=== PATIENT | female | born 1985 | race Caucasian/White ===

== ENCOUNTER 2018-11-15 07:19 | Emergency (ER) | payer OTHER ==
[2018-11-15 07:32] VITALS: BP 162/92; PULSE 103; TEMP 98.5; BMI 46.5
--- NOTE | 2018-11-15 08:49 | PDOC ---
History of Present Illness - General Chief Complaint: Injury Stated Complaint: RIGHT GREAT TOE PAIN Time Seen by Provider: 11/15/18 07:55 History Source: Patient Exam Limitations: No Limitations - History of Present Illness Initial Comments: 11/15/18 08:45 33-year-old female with history of diabetes currently on no medication presents to ED with swelling to the right great toe since yesterday. Patient states with walking which she struck it against the bed frame causing her discomfort and now with redness and swelling this morning. Patient denies previous injury to the affected area and radiation of pain. Timing/Duration: 24 hours Severity: mild Associated Symptoms: reports: denies symptoms Past History - Travel Traveled outside of the country in the last 30 days: No - Past Medical History Allergies/Adverse Reactions: Allergies Allergy/AdvReac Type Severity Reaction Status Date / Time No Known Allergies Allergy Verified 11/15/18 07:32 Home Medications: Ambulatory Orders Metformin HCl [Metformin HCl ER] 1,000 mg PO BID 09/03/15 Lisinopril [Prinivil] 2.5 mg PO DAILY #30 tablet 09/04/15 Clindamycin [Cleocin -] 300 mg PO TID #21 capsule 11/15/18 Anemia: No Asthma: No Cancer: No Cardiac Disorders: No CVA: No COPD: No CHF: No Dementia: No Diabetes: Yes (NIIDM not on meds) GI Disorders: No Disorders: No HTN: Yes Hypercholesterolemia: Yes Liver Disease: No Seizures: No Thyroid Disease: No - Surgical History Abdominal Surgery: No Appendectomy: No Cardiac Surgery: No Cholecystectomy: No Lung Surgery: No Neurologic Surgery: No Orthopedic Surgery: No - Suicide/Smoking/Psychosocial Hx Smoking History: Never smoked Information on smoking cessation initiated: No Hx Alcohol Use: No Drug/Substance Use Hx: No Substance Use Type: None Hx Substance Use Treatment: No Patient Lives Alone: No Lives with/in: parents Review of Systems - Review of Systems Able to Perform ROS?: Yes Constitutional: No: Symptoms Reported HEENTM: No: Symptoms Reported Respiratory: No: Symptoms reported ABD/GI: No: Symptoms Reported Musculoskeletal: Yes: Joint Pain (rt 1st toe), Joint Swelling Integumentary: Yes: Bruising, Erythema Endocrine: No: Increased Thirst, Increased Urine, Change in Weight *Physical Exam - Vital Signs Last Vital Signs Temp Pulse Resp BP Pulse Ox 98.5 F 103 H 19 162/92 97 11/15/18 07:28 11/15/18 07:28 11/15/18 07:28 11/15/18 07:28 11/15/18 07:28 - Physical Exam General Appearance: Yes: Appropriately Dressed. No: Apparent Distress HEENT: positive: Pharynx Normal (dry) Neck: positive: Normal Thyroid Respiratory/Chest: positive: Lungs Clear, Normal Breath Sounds. negative: Respiratory Distress, Accessory Muscle Use Cardiovascular: positive: Regular Rhythm, Regular Rate (94). negative: Murmur Extremity: positive: Normal Capillary Refill, Normal Range of Motion, Tender ( generally over right first toe) Integumentary: positive: Swelling, Ecchymosis (right first toe) Neurologic: positive: Motor Strength 5/5 (ambulatory) Moderate Sedation - Procedure Monitoring Vital Signs: Procedure Monitoring Vital Signs Temperature 98.5 F 11/15/18 07:28 Pulse Rate 103 H 11/15/18 07:28 Respiratory Rate 19 11/15/18 07:28 Blood Pressure 162/92 11/15/18 07:28 O2 Sat by Pulse Oximetry (%) 97 11/15/18 07:28 ED Treatment Course - RADIOLOGY Radiology Studies Ordered: Category Date Time Status TOE(S) RIGHT [RAD] Stat Radiology 11/15/18 07:55 Taken Medical Decision Making - Medical Decision Making 11/15/18 08:29 Chief complaint: Right great toe injury Exam: Edematous erythematous and ecchymotic right first toe. Full range of motion. no deformity Plan: Toe x-ray 11/15/18 08:49 X-ray negative. Due to patient's history of diabetes and appearance of right first toe. Patient will be prescribed clindamycin. Patient has an appointment with rn homecare, Dr. Washington at 12:30 this Tuesday *DC/Admit/Observation/Transfer Diagnosis at time of Disposition: Contusion of toe of right foot - Discharge Dispostion Disposition: HOME Condition at time of disposition: Good - Prescriptions Prescriptions: Clindamycin [Cleocin -] 300 mg PO TID #21 capsule - Referrals - Patient Instructions Printed Discharge Instructions: DI for Toe Sprain Additional Instructions: Please take medications prescribed to prevent infection from your diabetes. May take Tylenol for discomfort. Observe for worsening redness swelling or discomfort. If noted please return to the ED. Otherwise follow-up with her rn homecare as scheduled - Post Discharge Activity
== END 2018-11-15 09:02 | disposition home or self-care (01) ==
LOC: JER 07:19
DX: S90.111A Contusion of right great toe without damage to nail, initial encounter (principal); W22.03XA Walked into furniture, initial encounter; Y93.89 Activity, other specified; Y92.038 Other place in apartment as the place of occurrence of the external cause; Y99.8 Other external cause status
CPT/HCPCS: 73660-TC-FY; 99281-25

== ENCOUNTER 2018-11-20 13:01 | Inpatient (IN) | payer OTHER ==
--- NOTE | 2018-11-20 13:26 | PDOC ---
History of Present Illness - General Chief Complaint: Wound Stated Complaint: SEND BY MD Time Seen by Provider: 11/20/18 13:26 - History of Present Illness Initial Comments: 33 year old female with PMH of newly diagnosed DM (non-medicated currently) presents to ED with swelling and lesions of the right first toe for the past seven days. Patient states with walking seven days prior she struck it against the bed frame causing her discomfort which evolved into redness and eventually skin breakdown and spreading erythema around the wound. Patient presenting to the ED 5 days prior and was given Clindamycin with good resolution of her symptoms and states that her pain an redness have improved. However, when she saw her vascular surgeon (Dr. Anderson) today, he removed a skin callous over one of the primary wounds and she states that he noted some purulent material. Per my conversation on the phone with him, he feels that the patient needs IV antibiotics. Of note this was the first time she saw Justin and the first time she saw anyone for her diabetes as well. 11/20/18 13:299+ Past History - Past Medical History Allergies/Adverse Reactions: Allergies Allergy/AdvReac Type Severity Reaction Status Date / Time No Known Allergies Allergy Verified 11/20/18 13:11 Home Medications: Ambulatory Orders NK [No Known Home Medication] 11/20/18 Anemia: No Asthma: No Cancer: No Cardiac Disorders: No CVA: No COPD: No CHF: No Dementia: No Diabetes: Yes (NIIDM not on meds) GI Disorders: No Disorders: No HTN: Yes Hypercholesterolemia: Yes Liver Disease: No Seizures: No Thyroid Disease: No - Surgical History Abdominal Surgery: No Appendectomy: No Cardiac Surgery: No Cholecystectomy: No Lung Surgery: No Neurologic Surgery: No Orthopedic Surgery: No - Suicide/Smoking/Psychosocial Hx Smoking History: Never smoked Have you smoked in the past 12 months: No Information on smoking cessation initiated: No Hx Alcohol Use: No Drug/Substance Use Hx: No Substance Use Type: None Hx Substance Use Treatment: No Review of Systems - Review of Systems Constitutional: No: Chills, Diaphoresis, Fever, Loss of Appetite HEENTM: No: Eye Pain, Blurred Vision, Tearing Respiratory: No: Cough, Orthopnea, Shortness of Breath Cardiac (ROS): No: Chest Pain, Edema, Irregular Heart Rate ABD/GI: No: Constipated, Diarrhea, Nausea : No: Dysuria, Discharge, Frequency Musculoskeletal: No: Back Pain, Gout, Joint Pain Integumentary: No: Bruising, Lesions, Lumps Neurological: No: Headache, Numbness, Paresthesia Psychiatric: No: Anxiety, Depression Endocrine: No: Excessive Sweating, Flushing, Intolerance to Cold Hematologic/Lymphatic: No: Anemia, Blood Clots *Physical Exam - Vital Signs Last Vital Signs Temp Pulse Resp BP Pulse Ox 99.0 F 95 H 16 173/94 H 100 11/20/18 13:09 11/20/18 13:09 11/20/18 13:09 11/20/18 13:09 11/20/18 13:09 - Physical Exam General Appearance: Yes: Nourished, Appropriately Dressed. No: Apparent Distress HEENT: positive: EOMI, NEETU, Normal ENT Inspection, Normal Voice Neck: positive: Trachea midline, Normal Thyroid, Supple. negative: Tender, Rigid Respiratory/Chest: positive: Lungs Clear, Normal Breath Sounds. negative: Chest Tender, Respiratory Distress, Accessory Muscle Use Cardiovascular: positive: Regular Rhythm, Regular Rate Gastrointestinal/Abdominal: positive: Normal Bowel Sounds, Flat, Soft. negative : Tender Lymphatic: negative: Adenopathy, Tenderness Musculoskeletal: negative: Normal Inspection (Right first toe with 2-3 cm irregular, semi-linear wound across the plantar aspect and two smaller circular wounds on the medial aspoect of distal first toe approximately 5mm and 1 cm in diameter. ALl wounds appear clean and without purulence. Also erythem of the skin extending from the wound proximally to hte mid dorsal foot. No streaking or fluctuance. ), Decreased Range of Motion Extremity: positive: Normal Capillary Refill, Normal Range of Motion, Tender ( per exam in MSK section). negative: Normal Inspection Integumentary: positive: Normal Color, Dry, Warm, Erythema, Swelling Neurologic: positive: southeast regional sales manager II-XII NML intact, Fully Oriented, Alert, Normal Mood/ Affect, Normal Response, Motor Strength 5/5 Moderate Sedation - Procedure Monitoring Vital Signs: Procedure Monitoring Vital Signs Temperature 99.0 F 11/20/18 13:09 Pulse Rate 95 H 11/20/18 13:09 Respiratory Rate 16 11/20/18 13:09 Blood Pressure 173/94 H 11/20/18 13:09 O2 Sat by Pulse Oximetry (%) 100 11/20/18 13:09 ED Treatment Course - LABORATORY CBC & Chemistry Diagram: 11/20/18 13:34 11/20/18 13:34 Medical Decision Making - Medical Decision Making 33 year old obese female with new onset diabetes and foot wound. Patient with stable VS and admitted improvement of her foot wound but there is concern for refractory infection given purulence noted on Dr. Greer's exam. Will admit patient for short course of IV antibiotics. Spoke to Dr. Strong ( endocrinology) as well and he was unsure what to start her on and will defer to hospitalist team for short term control then likely use oral meds for intermediate control. 11/20/18 14:16 *DC/Admit/Observation/Transfer Diagnosis at time of Disposition: Wound of foot, Newly diagnosed diabetes - Discharge Dispostion Condition at time of disposition: Stable Decision to Admit order: Yes - Referrals - Patient Instructions - Post Discharge Activity
[2018-11-20] MEDS ORDERED: PIPERACILLIN/TAZOB 4.5 GM 4.5 GM in DEXTROSE 5%-WATER 100 ML IVPB ONE (13:55)
[2018-11-20] MEDS ORDERED: VANCOMYCIN HCL 1,500 MG in DEXTROSE 5%-WATER - 500 ML IVPB ONE (13:55)
[2018-11-20] MEDS ORDERED: VANCOMYCIN 1 GRAM (PRE-DOCKED) 1,000 MG/250 ML BAG IVPB ONE (14:07)
[2018-11-20] MEDS ORDERED: PIPERACILLIN/TAZOB 4.5 GM 4.5 GM/100 ML BAG IVPB ONE (14:07)
[2018-11-20 14:15] LABS: HEMATOCRIT 36.7 % (32.4-45.2); HEMOGLOBIN 12.7 GM/dL (10.7-15.3); MCH 28.6 pg (25.7-33.7); MCHC 34.6 g/dl (32.0-36.0); MEAN CELL VOLUME 82.9 fl (80-96); MEAN PLT VOLUME 7.8 fl (7.5-11.1); PLATELET COUNT 427 K/MM3 (134-434); RBC 4.43 M/mm3 (3.60-5.2); RDW 14.4 % (11.6-15.6); WHITE BLOOD COUNT 10.2 K/mm3 (4.0-10.0)
--- NOTE | 2018-11-20 14:26 | PDOC ---
Attending Attestation - HPI HPI: 11/20/18 14:27 33 y/o F with a h/o NIDDM (poorly controlled), recent right toe cellulitis who presents to the emergency department for evaluation of a 7 day hx of first right toe swelling and lesions. Patient was sent by Dr. Dyer for possible IV antibiotics. Patient was sent to the ED 5 days prior and was given Clindaymicn without significant improvement to her symptoms. She notes Dr. Dyer sent her for evaluation after he removed a skin callous from the wound which produced purulent material and sent the pt to the ER for IV abx. pt notes she banged her foot on tuesday morning prior to arrival. no prior history of abcesses or nonhealing wounds. denies any fever/chills, n/v. <Rere Espino - Last Filed: 11/20/18 14:27> - Resident Resident Name: VestaStephaniecheli - ED Attending Attestation I have performed the following: I have examined & evaluated the patient, The case was reviewed & discussed with the resident, I agree w/resident's findings & plan, Exceptions are as noted - Physicial Exam PE: 11/20/18 14:39 general: no acute distress ext: wound on R 1st digit w erythema - Medical Decision Making 11/20/18 14:31 33y F hx of NIDDM poorly contorled sent for evaluation of R toe wound by vascular for IV abx, recent trauma, was on outpatient clindamycin. no systemic complaints suggestive of sepsis anticiapte admission and faustino bx A portion of this note was documented by scribe services under my direction. I have reviewed the details of the note, within reason, and agree with the documentation with the following case summary and management plan written by me <Alli Asher - Last Filed: 11/20/18 14:40> Attestations - Attestations Documentation prepared by Rere Espino, acting as medical artist for Alli Asher MD. <Rere Espino - Last Filed: 11/20/18 14:27>
[2018-11-20 14:37] LABS: INR 1.04 (0.83-1.09); PROTHROMBIN TIME (PATIENT) 12.3 SEC (9.7-13.0)
[2018-11-20 14:58] LABS: ALBUMIN 2.6 g/dl (3.4-5.0); ALK PHOS 92 U/L (45-117); ANION GAP 9 MMOL/L (8-16); BILIRUBIN,TOTAL 0.2 mg/dL (0.2-1); BLOOD UREA NITROGEN 10 mg/dL (7-18); CHLORIDE 99 mmol/L (98-107); CO2 27 mmol/L (21-32); CREATININE 0.7 mg/dL (0.55-1.3); POTASSIUM 4.4 mmol/L (3.5-5.1); SGOT/AST 20 U/L (15-37); SGPT/ALT 20 U/L (13-61); SODIUM 134 mmol/L (136-145); TOT PROT 7.6 g/dl (6.4-8.2)
[2018-11-20 15:05] LABS: GLUCOSE,RANDOM 310 mg/dL (74-106)
--- NOTE | 2018-11-20 15:38 | CON.ID ---
Consult Consult Specialty:: infectious diseases Referred by:: Reason for Consultation:: toe in fection rt leg - History of Present Illness Chief Complaint: swelling and non healing of the rt toe History of Present Illness: 33 year old female with PMH of newly diagnosed DM ) presents to ED with swelling and lesions of the right first toe for the past seven days. Patient states with walking seven days prior she struck it against the bed frame causing her discomfort which evolved into redness and eventually skin breakdown and spreading erythema around the wound. Patient presenting to the ED 5 days prior and was given Clindamycin with good resolution of her symptoms and states that her pain an redness have improved. However, when she saw her vascular surgeon (Dr. Anderson) today, he removed a skin callous over one of the primary wounds and she states that he noted some purulent material. patient was send to be given iv abx - History Source History Provided By: Patient Limitations to Obtaining History: No Limitations - Past Medical History Cardio/Vascular: Yes: HTN, Hyperlipdemia - Alcohol/Substance Use Hx Alcohol Use: No - Smoking History Smoking history: Never smoked Have you smoked in the past 12 months: No - Social History Usual Living Arrangement: With Significant Other Home Medications - Allergies Allergies/Adverse Reactions: Allergies Allergy/AdvReac Type Severity Reaction Status Date / Time No Known Allergies Allergy Verified 11/20/18 13:11 - Home Medications Home Medications: Ambulatory Orders NK [No Known Home Medication] 11/20/18 Family Disease History - Family Disease History Family Disease History: Heart Disease: Father ( of [place] in his 50s) Review of Systems - Review of Systems Constitutional: reports: No Symptoms Eyes: reports: No Symptoms HENT: reports: No Symptoms Neck: reports: No Symptoms Cardiovascular: reports: No Symptoms Respiratory: reports: No Symptoms Gastrointestinal: reports: No Symptoms Musculoskeletal: reports: No Symptoms Integumentary: reports: Erythema, Wound, Other (swelling of the rt foot with cellulitis) Neurological: reports: No Symptoms Endocrine: reports: No Symptoms Hematology/Lymphatic: reports: No Symptoms Psychiatric: reports: No Symptoms Physical Exam Vital Signs: Vital Signs Temperature 99.0 F 11/20/18 13:09 Pulse Rate 95 H 11/20/18 13:09 Respiratory Rate 16 11/20/18 13:09 Blood Pressure 173/94 H 01/14/19 13:09 O2 Sat by Pulse Oximetry (%) 100 11/20/18 13:09 Constitutional: Yes: Well Nourished, Calm, Mild Distress, Obese Eyes: Yes: Conjunctiva Clear Cardiovascular: Yes: Regular Rate and Rhythm Respiratory: Yes: Regular, CTA Bilaterally Gastrointestinal: Yes: Normal Bowel Sounds, Soft Musculoskeletal: Yes: WNL Extremities: Yes: Erythema (rt), Other (swelling and tenderness) Neurological: Yes: Alert, Oriented Labs: CBC, BMP 11/20/18 13:34 11/20/18 13:34 Imaging - Results X-ray: Report Reviewed, Image Reviewed Assessment/Plan Problem List - Problems (1) Callus of foot Code(s): L84 - CORNS AND CALLOSITIES (2) Contusion of toe of right foot Code(s): S90.121A - CONTUSION OF RIGHT LESSER TOE(S) W/O DAMAGE TO NAIL, INIT (3) Diabetes Assessment/Plan: on insulin and bgms Code(s): E11.9 - TYPE 2 DIABETES MELLITUS WITHOUT COMPLICATIONS (4) HTN (hypertension) Assessment/Plan: monitor Code(s): I10 - ESSENTIAL (PRIMARY) HYPERTENSION (5) Hyperlipemia Code(s): E78.5 - HYPERLIPIDEMIA, UNSPECIFIED (6) Morbid obesity Code(s): E66.01 - MORBID (SEVERE) OBESITY DUE TO EXCESS CALORIES (7) Wound of foot Assessment/Plan: iv abx prnpain meds dressing instructions per wound care Code(s): S91.309A - UNSPECIFIED OPEN WOUND, UNSPECIFIED FOOT, INITIAL ENCOUNTER cellulitis of the rt foot plan will start patient on iv abx will follow the wound in day or so if the leg still remains swollen will get mri rest as per the team and vascular
--- NOTE | 2018-11-20 15:59 | CONSULT ---
<Papo Gar - Last Filed: 11/20/18 16:16> - Consultation REQUESTING PROVIDER: CONSULT REQUEST: We have been asked to surgically evaluate this patient for ( Right great toe ulcer). PCP:Elle Allen HISTORY OF PRESENT ILLNESS: 33 y/o F w/ PMhx NIDDM (poorly controlled), htn, morbid obesity, now sent to Ed by Vascular Surgeon, Dr Dyer for admission for Iv abx due to R great toe infection/cellulitis. Pt states Tuesday morning she stubbed her right great toe while walking around her house. Reports she did not remove her sock at the time as she frequently stubs her toes due to her "clumsiness and clutter in the house ". The next morning pt reports having significant pain when she woke. Upon examining her foot she noted it to be significantly swollen with some redness. She presented to [facility] ED where she had an xray done (normal) and was given an RX for Clindamycin 300mg TID x 1 week. Pt reports taking antibiotics as prescribed without significant improvement in symptoms. States she had a follow up appointment with her Automotive Software Engineer (Dr Bowen) on Tuesday at 1230pm. Dr Strong referred pt to Dr Deyr. Reports debridement of a callus in the office by Dr Dyer with +pus expressed. Denies fever/chills, n/v/d at home, denies prior h/o tobacco abuse, history of abcesses or nonhealing wounds denies any fever/chills, n/v. PMHx: as above PSHx: denies Home Medications Medication Instructions Recorded metFORMIN HCL [Metformin ER 1,000 mg PO BID 09/03/15 Osmotic] Lisinopril [Prinivil] 2.5 mg PO DAILY #30 tablet 09/04/15 Clindamycin [Cleocin -] 300 mg PO TID #21 capsule 11/15/18 Allergies Allergy/AdvReac Type Severity Reaction Status Date / Time No Known Allergies Allergy Verified 11/20/18 13:11 REVIEW OF SYSTEMS: CONSTITUTIONAL: Absent: fever, chills, diaphoresis CARDIOVASCULAR: Absent: chest pain RESPIRATORY: Absent: cough, shortness of breath GASTROINTESTINAL: Absent: abdominal pain PHYSICAL EXAM: GENERAL: Awake, alert, and fully oriented, in no acute distress. Pleasant female in NAD, does not appear septic. HEAD: Normal with no signs of trauma. LUNGS: Unlabored on RA. LOWER EXTREMITIES: L foot with no open ulcers or wounds. Callus over medial aspect of great toe. R foot with 1+ pitting edema to ankle, +erythema and increased warmth of forefoot. R toe with open ulcer approx 4x2cm on medial aspect of great toe (s/p debridement of callus), scant seropurulent drainage expressed. +TTP of great toe, +ecchymosis of great toe. Small ?denuded blister over 1st metatarsal head, clean based with no drainage. No ttp on plantar surface. No crepitus. Vasc: 2+ dp/pt b/l Vital Signs Temperature 99.0 F 11/20/18 13:09 Pulse Rate 95 H 11/20/18 13:09 Respiratory Rate 16 11/20/18 13:09 Blood Pressure 173/94 H 11/20/18 13:09 O2 Sat by Pulse Oximetry (%) 100 11/20/18 13:09 Lab Results WBC 10.2 K/mm3 (4.0-10.0) H 11/20/18 13:34 RBC 4.43 M/mm3 (3.60-5.2) 11/20/18 13:34 Hgb 12.7 GM/dL (10.7-15.3) 11/20/18 13:34 Hct 36.7 % (32.4-45.2) 11/20/18 13:34 MCV 82.9 fl (80-96) 11/20/18 13:34 MCHC 34.6 g/dl (32.0-36.0) 11/20/18 13:34 RDW 14.4 % (11.6-15.6) 11/20/18 13:34 Plt Count 427 K/MM3 (134-434) D 11/20/18 13:34 Sodium 134 mmol/L (136-145) L 11/20/18 13:34 Potassium 4.4 mmol/L (3.5-5.1) 11/20/18 13:34 Chloride 99 mmol/L (98-107) 11/20/18 13:34 Carbon Dioxide 27 mmol/L (21-32) 11/20/18 13:34 Anion Gap 9 MMOL/L (8-16) 11/20/18 13:34 BUN 10 mg/dL (7-18) 11/20/18 13:34 Creatinine 0.7 mg/dL (0.55-1.3) 11/20/18 13:34 Random Glucose 310 mg/dL (74-106) H* 11/20/18 13:34 Calcium 9.0 mg/dL (8.5-10.1) 11/20/18 13:34 Blood Type A POSITIVE 11/20/18 13:34 Antibody Screen Negative 11/20/18 13:34 INR 1.04 (0.83-1.09) 11/20/18 13:34 A/P: 33 y/o F w/ PMhx NIDDM (poorly controlled), htn, morbid obesity, now sent to Ed by Vascular Surgeon, Dr Dyer for admission for Iv abx due to R great toe infection/cellulitis. In ED pt with low grade temp to 99F, tachy to low 100s, hypertensive. Mild leukocytosis. R great toe with cellulitis. -Admit to medical service for IV abx (Vanco/Zosyn) -Bactroban to ulcer, wrap with 4x4 and kerlix -Elevate le while at rest -Glucose control -Remainder of care per medical team -Will follow pt while in house above d/w attending Dr Dyer <Guru Dyer - Last Filed: 11/21/18 13:26> - Consultation REQUESTING PROVIDER: CONSULT REQUEST: We have been asked to surgically evaluate this patient for ( specify). PCP:Elle Allen HISTORY OF PRESENT ILLNESS: PMHx: PSHx: Home Medications Medication Instructions Recorded NK [No Known Home Medication] 11/20/18 Allergies Allergy/AdvReac Type Severity Reaction Status Date / Time No Known Allergies Allergy Verified 11/20/18 13:11 REVIEW OF SYSTEMS: CONSTITUTIONAL: Absent: fever, chills, diaphoresis, generalized weakness, malaise, loss of appetite, weight change CARDIOVASCULAR: Absent: chest pain, syncope, palpitations, irregular heart rate, lightheadedness , peripheral edema RESPIRATORY: Absent: cough, shortness of breath, dyspnea with exertion, wheezing, stridor, hemoptysis GASTROINTESTINAL: Absent: abdominal pain, abdominal distension, nausea, vomiting, diarrhea, constipation, melena, hematochezia GENITOURINARY: Absent: dysuria, frequency, urgency, hesitancy, hematuria, flank pain, genital pain MUSCULOSKELETAL: Absent: myalgia, arthralgia, joint swelling, back pain, neck pain SKIN: Absent: rash, itching, pallor HEMATOLOGIC/IMMUNOLOGIC: Absent: easy bleeding, easy bruising, lymphadenopathy NEUROLOGIC: Absent: headache, focal weakness, paresthesias, dizziness, unsteady gait, seizure, mental status changes, bladder or bowel incontinence PSYCHIATRIC: Absent: anxiety, depression, suicidal or homicidal ideation, hallucinations. PHYSICAL EXAM: GENERAL: Awake, alert, and fully oriented, in no acute distress. HEAD: Normal with no signs of trauma. EYES: PERRL, sclera anicteric, conjunctiva clear. NECK: Normal ROM, supple without lymphadenopathy, JVD, or masses. LUNGS: Clear to auscultation bilat anteriorly. No wheezes, and no crackles. No accessory muscle use. HEART: Regular rate and rhythm. No murmurs ABDOMEN: Soft, nontender, not distended, normoactive bowel sounds, no guarding, no rebound, no masses. No organomegaly. MUSCULOSKELETAL: Normal ROM at all joints. No bony deformities or tenderness. No CVA tenderness. UPPER EXTREMITIES: 2+ pulses, warm, well-perfused. No cyanosis. Cap refill <2 seconds. No peripheral edema. LOWER EXTREMITIES: 2+ pulses, warm, well-perfused. No calf tenderness. No peripheral edema. NEUROLOGICAL: Normal speech, gait not observed. PSYCH: Cooperative. Good eye contact. Appropriate mood and affect. SKIN: Warm, dry, normal turgor, no rashes or lesions noted. Vital Signs Temperature 98.8 F 11/21/18 08:00 Pulse Rate 88 11/21/18 08:00 Respiratory Rate 20 11/21/18 08:00 Blood Pressure 137/70 11/21/18 08:00 O2 Sat by Pulse Oximetry (%) 100 11/21/18 08:00 Lab Results WBC 10.2 K/mm3 (4.0-10.0) H 11/20/18 13:34 RBC 4.43 M/mm3 (3.60-5.2) 11/20/18 13:34 Hgb 12.7 GM/dL (10.7-15.3) 11/20/18 13:34 Hct 36.7 % (32.4-45.2) 11/20/18 13:34 MCV 82.9 fl (80-96) 11/20/18 13:34 MCHC 34.6 g/dl (32.0-36.0) 11/20/18 13:34 RDW 14.4 % (11.6-15.6) 11/20/18 13:34 Plt Count 427 K/MM3 (134-434) D 11/20/18 13:34 Sodium 134 mmol/L (136-145) L 11/20/18 13:34 Potassium 4.4 mmol/L (3.5-5.1) 11/20/18 13:34 Chloride 99 mmol/L (98-107) 11/20/18 13:34 Carbon Dioxide 27 mmol/L (21-32) 11/20/18 13:34 Anion Gap 9 MMOL/L (8-16) 11/20/18 13:34 BUN 10 mg/dL (7-18) 11/20/18 13:34 Creatinine 0.7 mg/dL (0.55-1.3) 11/20/18 13:34 Random Glucose 310 mg/dL (74-106) H* 11/20/18 13:34 Calcium 9.0 mg/dL (8.5-10.1) 11/20/18 13:34 Blood Type A POSITIVE 11/20/18 13:34 Antibody Screen Negative 11/20/18 13:34 INR 1.04 (0.83-1.09) 11/20/18 13:34 Patient seen in my office with infected right 1st toe. Excisional debridement performed to drain infection from toe. Patient admitted for IV antibiotics and wound care.
[2018-11-20] MEDS ORDERED: PIPERACILLIN/TAZOB 3.375 GM 3.375 GM/50 ML BAG IVPB ONE (18:48)
[2018-11-20] MEDS: PIPERACILLIN/TAZOB 3.375 GM 3.375 GM in DEXTROSE 5%-WATER - 50 ML IVPB SCH (18:58)
--- NOTE | 2018-11-20 20:08 | HP ---
Admitting History and Physical - Primary Care Physician PCP: Elle Allen - Admission History of Present Illness: 33 y/o F with a h/o NIDDM (poorly controlled), recent right toe cellulitis who presents to the emergency department for evaluation of a 7 day hx of first right toe swelling and lesions. Patient was sent by Dr. Dyer for possible IV antibiotics. Patient was sent to the ED 5 days prior and was given Clindaymicn without significant improvement to her symptoms. She notes Dr. Dyer sent her for evaluation after he removed a skin callous from the wound which produced purulent material and sent the pt to the ER for IV abx. pt notes she banged her foot on tuesday morning prior to arrival. no prior history of abcesses or nonhealing wounds. denies any fever/chills, n/v. - Past Medical History Cardiovascular: Yes: HTN, Hyperlipdemia - Smoking History Smoking history: Never smoked Have you smoked in the past 12 months: No - Alcohol/Substance Use Hx Alcohol Use: No Home Medications - Allergies Allergies/Adverse Reactions: Allergies Allergy/AdvReac Type Severity Reaction Status Date / Time No Known Allergies Allergy Verified 11/20/18 13:11 - Home Medications Home Medications: Ambulatory Orders NK [No Known Home Medication] 11/20/18 Family Disease History - Family Disease History Family Disease History: Heart Disease: Father ( of [place] in his 50s) Physical Examination Vital Signs: Vital Signs Temperature 98.1 F 11/20/18 19:10 Pulse Rate 84 11/20/18 19:10 Respiratory Rate 17 11/20/18 19:10 Blood Pressure 148/90 11/20/18 19:10 O2 Sat by Pulse Oximetry (%) 100 11/20/18 13:09 Constitutional: Yes: No Distress HENT: Yes: Atraumatic Neck: Yes: Supple Cardiovascular: Yes: Regular Rate and Rhythm Respiratory: Yes: CTA Bilaterally Gastrointestinal: Yes: Normal Bowel Sounds Extremities: Yes: WNL, Other (R toe ulcer/cellulitis) Neurological: Yes: Alert, Oriented Labs: CBC, BMP 11/20/18 13:34 11/20/18 13:34 Problem List - Problems (1) Callus of foot Code(s): L84 - CORNS AND CALLOSITIES (2) Contusion of toe of right foot Code(s): S90.121A - CONTUSION OF RIGHT LESSER TOE(S) W/O DAMAGE TO NAIL, INIT (3) Diabetes Assessment/Plan: on insulin and bgms Code(s): E11.9 - TYPE 2 DIABETES MELLITUS WITHOUT COMPLICATIONS (4) HTN (hypertension) Assessment/Plan: monitor Code(s): I10 - ESSENTIAL (PRIMARY) HYPERTENSION (5) Hyperlipemia Code(s): E78.5 - HYPERLIPIDEMIA, UNSPECIFIED (6) Morbid obesity Code(s): E66.01 - MORBID (SEVERE) OBESITY DUE TO EXCESS CALORIES (7) Wound of foot Assessment/Plan: iv abx prnpain meds dressing instructions per wound care Code(s): S91.309A - UNSPECIFIED OPEN WOUND, UNSPECIFIED FOOT, INITIAL ENCOUNTER Assessment/Plan Laboratory Tests 11/20/18 11/20/18 11/20/18 13:34 13:34 13:34 WBC 10.2 H RBC 4.43 Hgb 12.7 Hct 36.7 MCV 82.9 MCH 28.6 MCHC 34.6 RDW 14.4 Plt Count 427 D MPV 7.8 ESR PT with INR 12.30 INR 1.04 Sodium 134 L Potassium 4.4 Chloride 99 Carbon Dioxide 27 Anion Gap 9 BUN 10 Creatinine 0.7 Creat Clearance w eGFR > 60 Random Glucose 310 H* Calcium 9.0 Total Bilirubin 0.2 AST 20 ALT 20 Alkaline Phosphatase 92 C-Reactive Protein 3.9 H Total Protein 7.6 Albumin 2.6 L Serum , Qual Urine HCG, Qual Blood Type Antibody Screen 11/20/18 11/20/18 11/20/18 13:34 13:34 13:34 WBC RBC Hgb Hct MCV MCH MCHC RDW Plt Count MPV ESR PT with INR INR Sodium Potassium Chloride Carbon Dioxide Anion Gap BUN Creatinine Creat Clearance w eGFR Random Glucose Calcium Total Bilirubin AST ALT Alkaline Phosphatase C-Reactive Protein Total Protein Albumin Serum , Qual Negative Urine HCG, Qual Cancelled Blood Type A POSITIVE Antibody Screen Negative 11/20/18 14:03 WBC RBC Hgb Hct MCV MCH MCHC RDW Plt Count MPV ESR 91 H PT with INR INR Sodium Potassium Chloride Carbon Dioxide Anion Gap BUN Creatinine Creat Clearance w eGFR Random Glucose Calcium Total Bilirubin AST ALT Alkaline Phosphatase C-Reactive Protein Total Protein Albumin Serum , Qual Urine HCG, Qual Blood Type Antibody Screen Active Medications Generic Name Dose Route Start Last Admin Trade Name Freq PRN Reason Stop Dose Admin Piperacillin Sod/Tazobactam 50 mls @ 100 mls/hr 11/20/18 18:00 11/20/18 18:58 Sod 3.375 gm/ Dextrose IVPB 100 mls/hr Q8H-IV [facility] Administration Protocol Active Medications Generic Name Dose Route Start Last Admin Trade Name Grzegorz PRN Reason Stop Dose Admin Heparin Sodium (Porcine) 5,000 unit 11/20/18 22:00 11/21/18 10:32 Heparin - SQ 5,000 unit BID [facility] Administration Piperacillin Sod/Tazobactam 50 mls @ 100 mls/hr 11/20/18 18:00 11/21/18 10:32 Sod 3.375 gm/ Dextrose IVPB 100 mls/hr Q8H-IV [facility] Administration Protocol Insulin Aspart 1 vial 11/20/18 22:00 11/21/18 10:35 Novolog Vial Sliding Scale - SQ 10 units ACHS [facility] Administration Protocol Mupirocin 1 applic 11/21/18 10:00 11/21/18 10:32 Bactroban 2% Ointment - TP 1 applic BID [facility] Administration Oxycodone HCl 10 mg 11/20/18 20:11 Roxicodone - PO Q6H PRN PAIN LEVEL 6-10
[2018-11-20] MEDS ORDERED: oxyCODONE HCL 5 MG TABLET PO PRN (20:11)
[2018-11-20] MEDS ORDERED: INSULIN (NOVOLOG) ASPART 100 UNITS/ML 10ML VIAL ONE (21:24)
[2018-11-20] MEDS: INSULIN SLIDING SCALE (NOVOLOG) 1 VIAL SQ SCH (21:28)
[2018-11-20] MEDS: HEPARIN NA (PORCINE) 5,000 UNITS/ML 1ML VIAL SQ SCH (21:29)
[2018-11-20 23:04] VITALS: BMI 50.2
[2018-11-21] MEDS ORDERED: DEXTROSE 5%-WATER - 50 ML IVPB ONE ×3 (01:27→16:44)
[2018-11-21] MEDS ORDERED: PIPERACILLIN/TAZOBACTAM 3.375 GM VIAL IVPB ONE ×3 (01:27→16:44)
[2018-11-21] MEDS: PIPERACILLIN/TAZOB 3.375 GM 3.375 GM in DEXTROSE 5%-WATER - 50 ML IVPB SCH ×4 (01:36→17:07)
[2018-11-21] MEDS: INSULIN SLIDING SCALE (NOVOLOG) 1 VIAL SQ SCH ×4 (06:02→21:54)
--- NOTE | 2018-11-21 07:31 | PN ---
Progress Note (short form) - Note Progress Note: Pt seen and examined. States she is doing "okay" this morning. Reports continued pain in her foot with dressing changes. No issues overnight. Tolerating PO, has been oob without issue. Voiding. Denies cp/sob, n/v/d, calf pain/edema. Vital Signs Temp 99.1 F 11/21/18 05:54 Pulse 85 11/21/18 05:54 Resp 20 11/21/18 05:54 BP 160/97 11/21/18 05:54 Pulse Ox 100 11/20/18 13:09 Intake & Output 11/20/18 11/20/18 11/21/18 11:59 23:59 11:59 Intake Total 550 Balance 550 Weight 340 lb 1.6 oz Intake: IVPB 50 Oral 500 Other: Voiding Method Toilet # Unmeasured Voids Void 2 Height 5 ft 9 in Body Mass Index (BMI) 50.2 Weight Measurement Method Built in [facility] CBC, BMP 11/20/18 13:34 11/20/18 13:34 PHYSICAL EXAM: GENERAL: Awake, alert, and fully oriented, in no acute distress. Pleasant female in NAD, does not appear septic. HEAD: Normal with no signs of trauma. LUNGS: Unlabored on RA. LOWER EXTREMITIES: L foot with no open ulcers or wounds. Callus over medial aspect of great toe. R foot with 1+ pitting edema to ankle, +erythema and increased warmth of forefoot. R toe with open ulcer approx 4x2cm on medial aspect of great toe (s/p debridement of callus), + seropurulent drainage expressed. +TTP of great toe, +ecchymosis of great toe. Small ?denuded blister over 1st metatarsal head, clean based with no drainage, +TTP. No ttp on plantar surface. No crepitus. Vasc: 2+ dp/pt b/l A/P: 33 y/o F w/ PMhx NIDDM (poorly controlled), htn, morbid obesity, now sent to Ed by Vascular Surgeon, Dr Dyer for admission for Iv abx due to R great toe infection/cellulitis. Low grade fevers overnight, slightly tachy to high 90s, hypertensive. Cellulitis stable, + pus from great toe ulcer. -Continue IV abx (Vanco/Zosyn) -Dressing instructions: clean ulcer with peroxide/saline, apply Bactroban to ulcer, wrap with 4x4 and kerlix -Surgical shoe ordered -Elevate le while at rest -Glucose control -Remainder of care per medical team -Will follow pt while in house above d/w attending Dr Dyer
[2018-11-21] MEDS ORDERED: INSULIN (NOVOLOG) ASPART 100 UNITS/ML 10ML VIAL ONE ×3 (10:18→21:19)
[2018-11-21] MEDS: HEPARIN NA (PORCINE) 5,000 UNITS/ML 1ML VIAL SQ SCH ×2 (10:32→21:54)
[2018-11-21] MEDS: MUPIROCIN 2% TOPICAL OINTMENT 22 GM TUBE TP SCH ×2 (10:32→21:55)
--- NOTE | 2018-11-21 15:57 | PN ---
Progress Note, Physician History of Present Illness: doing well - Current Medication List Current Medications: Active Medications Heparin Sodium (Porcine) (Heparin -) 5,000 unit SQ BID [facility] Last Admin: 11/21/18 10:32 Dose: 5,000 unit Piperacillin Sod/Tazobactam (Sod 3.375 gm/ Dextrose) 50 mls @ 100 mls/hr IVPB Q8H-IV [facility]; Protocol Last Admin: 11/21/18 10:32 Dose: 100 mls/hr Insulin Aspart (Novolog Vial Sliding Scale -) 1 vial SQ ACHS [facility]; Protocol Last Admin: 11/21/18 10:35 Dose: 10 units Mupirocin (Bactroban 2% Ointment -) 1 applic TP BID [facility] Last Admin: 11/21/18 10:32 Dose: 1 applic Oxycodone HCl (Roxicodone -) 10 mg PO Q6H PRN PRN Reason: PAIN LEVEL 6-10 - Objective Vital Signs: Vital Signs Temperature 98.6 F 11/21/18 14:00 Pulse Rate 85 11/21/18 14:00 Respiratory Rate 18 11/21/18 14:00 Blood Pressure 159/94 11/21/18 14:00 O2 Sat by Pulse Oximetry (%) 100 11/21/18 08:00 Constitutional: Yes: No Distress HENT: Yes: Atraumatic Neck: Yes: Supple Cardiovascular: Yes: Regular Rate and Rhythm Respiratory: Yes: CTA Bilaterally Gastrointestinal: Yes: Normal Bowel Sounds Extremities: Yes: Other (R toe cellulitis) Neurological: Yes: Alert, Oriented Labs: CBC, BMP 11/20/18 13:34 11/20/18 13:34 INR, PTT INR 1.04 (0.83-1.09) 11/20/18 13:34 Problem List - Problems (1) Callus of foot Code(s): L84 - CORNS AND CALLOSITIES (2) Contusion of toe of right foot Code(s): S90.121A - CONTUSION OF RIGHT LESSER TOE(S) W/O DAMAGE TO NAIL, INIT (3) Diabetes Assessment/Plan: on insulin and bgms Code(s): E11.9 - TYPE 2 DIABETES MELLITUS WITHOUT COMPLICATIONS (4) HTN (hypertension) Assessment/Plan: monitor Code(s): I10 - ESSENTIAL (PRIMARY) HYPERTENSION (5) Hyperlipemia Code(s): E78.5 - HYPERLIPIDEMIA, UNSPECIFIED (6) Morbid obesity Code(s): E66.01 - MORBID (SEVERE) OBESITY DUE TO EXCESS CALORIES (7) Wound of foot Assessment/Plan: iv abx prnpain meds dressing instructions per wound care Code(s): S91.309A - UNSPECIFIED OPEN WOUND, UNSPECIFIED FOOT, INITIAL ENCOUNTER (8) Cellulitis Assessment/Plan: R big toe on abx per id wound care and dressing change Code(s): L03.90 - CELLULITIS, UNSPECIFIED
[2018-11-22] MEDS ORDERED: PIPERACILLIN/TAZOBACTAM 3.375 GM VIAL IVPB ONE ×3 (01:59→17:06)
[2018-11-22] MEDS ORDERED: DEXTROSE 5%-WATER - 50 ML IVPB ONE ×3 (01:59→17:06)
[2018-11-22] MEDS: PIPERACILLIN/TAZOB 3.375 GM 3.375 GM in DEXTROSE 5%-WATER - 50 ML IVPB SCH ×3 (02:14→17:30)
[2018-11-22] MEDS: INSULIN SLIDING SCALE (NOVOLOG) 1 VIAL SQ SCH ×4 (06:23→22:40)
--- NOTE | 2018-11-22 09:03 | PN ---
Progress Note (short form) - Note Progress Note: Pt seen and examined. States she is doing "okay" this morning. Reports her foot is less swollen. Endorses pain in her foot with dressing changes. No issues overnight. Tolerating PO, has been oob without issue with surgical shoe. Voiding. Denies cp/sob, n/v/d, calf pain/edema. Vital Signs Temp 98.2 F 11/22/18 05:37 Pulse 82 11/22/18 05:37 Resp 18 11/22/18 05:37 BP 150/96 11/22/18 05:37 Pulse Ox 100 11/21/18 22:00 Intake & Output 11/21/18 11/21/18 11/22/18 11:59 23:59 11:59 Intake Total 600 850 50 Balance 600 850 50 Intake: IVPB 100 50 50 Oral 500 800 Other: Voiding Method Toilet Toilet # Unmeasured Voids Void 2 1 1 Bowel Movement No No # Bowel Movements 0 CBC, BMP 11/20/18 13:34 11/20/18 13:34 PHYSICAL EXAM: GENERAL: Awake, alert, and fully oriented, in no acute distress. Pleasant female in NAD, does not appear septic. HEAD: Normal with no signs of trauma. LUNGS: Unlabored on RA. LOWER EXTREMITIES: L foot with no open ulcers or wounds. Callus over medial aspect of great toe. R foot edema improved. Erythema rescinded to base of metatarsal head. R toe with open ulcer approx 4x2cm on medial aspect of great toe (s/p debridement of callus), + seropurulent drainage expressed. +TTP of great toe, +ecchymosis of great toe. Small denuded blister over 1st metatarsal head, eschar intact with no drainage, +TTP. No ttp on plantar surface. No crepitus. Vasc: 2+ dp/pt b/l A/P: 33 y/o F w/ PMhx NIDDM (poorly controlled), htn, morbid obesity, now sent to Ed by Vascular Surgeon, Dr Dyer for admission for Iv abx due to R great toe infection/cellulitis. No fevers overnight, VSS. Cellulitis Improving, + pus from great toe ulcer. Glucose in 300s -Continue IV abx (Vanco/Zosyn) -Dressing instructions: clean ulcer with peroxide/saline, apply Bactroban to ulcer, wrap with 4x4 and kerlix -Elevate le while at rest -Glucose control -Remainder of care per medical team -Will follow pt while in house above d/w attending Dr Dyer
[2018-11-22] MEDS: MUPIROCIN 2% TOPICAL OINTMENT 22 GM TUBE TP SCH ×2 (09:39→22:40)
[2018-11-22] MEDS: HEPARIN NA (PORCINE) 5,000 UNITS/ML 1ML VIAL SQ SCH ×2 (09:40→22:39)
--- NOTE | 2018-11-22 09:57 | PN ---
Progress Note, Physician History of Present Illness: says she feels better no complaints - Current Medication List Current Medications: Active Medications Heparin Sodium (Porcine) (Heparin -) 5,000 unit SQ BID [facility] Last Admin: 11/22/18 09:40 Dose: 5,000 unit Piperacillin Sod/Tazobactam (Sod 3.375 gm/ Dextrose) 50 mls @ 100 mls/hr IVPB Q8H-IV [facility]; Protocol Last Admin: 11/22/18 09:40 Dose: 100 mls/hr Insulin Aspart (Novolog Vial Sliding Scale -) 1 vial SQ ACHS [facility]; Protocol Last Admin: 11/22/18 06:23 Dose: 8 units Mupirocin (Bactroban 2% Ointment -) 1 applic TP BID [facility] Last Admin: 11/22/18 09:39 Dose: 1 applic Oxycodone HCl (Roxicodone -) 10 mg PO Q6H PRN PRN Reason: PAIN LEVEL 6-10 - Objective Vital Signs: Vital Signs Temperature 98.8 F 11/22/18 09:00 Pulse Rate 95 H 11/22/18 09:00 Respiratory Rate 18 11/22/18 09:00 Blood Pressure 161/98 11/22/18 09:00 O2 Sat by Pulse Oximetry (%) 100 11/21/18 22:00 Constitutional: Yes: No Distress, Calm, Obese Cardiovascular: Yes: Regular Rate and Rhythm Respiratory: Yes: Regular, CTA Bilaterally Gastrointestinal: Yes: Normal Bowel Sounds, Soft Musculoskeletal: Yes: Other Extremities: Yes: Other Integumentary: Yes: Other Wound/Incision: Yes: Dressing Dry and Intact Neurological: Yes: Alert, Oriented Psychiatric: Yes: Alert, Oriented Labs: CBC, BMP 11/20/18 13:34 11/20/18 13:34 INR, PTT INR 1.04 (0.83-1.09) 11/20/18 13:34 Assessment/Plan Problem List - Problems (1) Callus of foot Code(s): L84 - CORNS AND CALLOSITIES (2) Contusion of toe of right foot Code(s): S90.121A - CONTUSION OF RIGHT LESSER TOE(S) W/O DAMAGE TO NAIL, INIT (3) Diabetes Assessment/Plan: on insulin and bgms Code(s): E11.9 - TYPE 2 DIABETES MELLITUS WITHOUT COMPLICATIONS (4) HTN (hypertension) Assessment/Plan: monitor Code(s): I10 - ESSENTIAL (PRIMARY) HYPERTENSION (5) Hyperlipemia Code(s): E78.5 - HYPERLIPIDEMIA, UNSPECIFIED (6) Morbid obesity Code(s): E66.01 - MORBID (SEVERE) OBESITY DUE TO EXCESS CALORIES (7) Wound of foot Assessment/Plan: iv abx prnpain meds dressing instructions per wound care Code(s): S91.309A - UNSPECIFIED OPEN WOUND, UNSPECIFIED FOOT, INITIAL ENCOUNTER cellulitis of the rt foot plan continue abx will see the wound tomorrow elevation of leg rest as per the team await for cx report
--- NOTE | 2018-11-22 09:59 | PN ---
Progress Note, Physician History of Present Illness: stable dressing removed cellulitis has improved swelling of the foot and toe still remain - Current Medication List Current Medications: Active Medications Heparin Sodium (Porcine) (Heparin -) 5,000 unit SQ BID [facility] Last Admin: 11/22/18 09:40 Dose: 5,000 unit Piperacillin Sod/Tazobactam (Sod 3.375 gm/ Dextrose) 50 mls @ 100 mls/hr IVPB Q8H-IV [facility]; Protocol Last Admin: 11/22/18 09:40 Dose: 100 mls/hr Insulin Aspart (Novolog Vial Sliding Scale -) 1 vial SQ ACHS [facility]; Protocol Last Admin: 11/22/18 06:23 Dose: 8 units Mupirocin (Bactroban 2% Ointment -) 1 applic TP BID [facility] Last Admin: 11/22/18 09:39 Dose: 1 applic Oxycodone HCl (Roxicodone -) 10 mg PO Q6H PRN PRN Reason: PAIN LEVEL 6-10 - Objective Vital Signs: Vital Signs Temperature 98.8 F 11/22/18 09:00 Pulse Rate 95 H 11/22/18 09:00 Respiratory Rate 18 11/22/18 09:00 Blood Pressure 161/98 11/22/18 09:00 O2 Sat by Pulse Oximetry (%) 100 11/21/18 22:00 Constitutional: Yes: No Distress, Calm, Obese Cardiovascular: Yes: Regular Rate and Rhythm Gastrointestinal: Yes: Normal Bowel Sounds, Soft Musculoskeletal: Yes: WNL Extremities: Yes: Erythema (of the leg), Other Wound/Incision: Yes: Clean/Dry, Dressing Removed, Other Neurological: Yes: Alert, Oriented Psychiatric: Yes: Alert, Oriented Labs: CBC, BMP 11/20/18 13:34 11/20/18 13:34 INR, PTT INR 1.04 (0.83-1.09) 11/20/18 13:34 Assessment/Plan Problem List - Problems (1) Callus of foot Code(s): L84 - CORNS AND CALLOSITIES (2) Contusion of toe of right foot Code(s): S90.121A - CONTUSION OF RIGHT LESSER TOE(S) W/O DAMAGE TO NAIL, INIT (3) Diabetes Assessment/Plan: on insulin and bgms Code(s): E11.9 - TYPE 2 DIABETES MELLITUS WITHOUT COMPLICATIONS (4) HTN (hypertension) Assessment/Plan: monitor Code(s): I10 - ESSENTIAL (PRIMARY) HYPERTENSION (5) Hyperlipemia Code(s): E78.5 - HYPERLIPIDEMIA, UNSPECIFIED (6) Morbid obesity Code(s): E66.01 - MORBID (SEVERE) OBESITY DUE TO EXCESS CALORIES (7) Wound of foot Assessment/Plan: iv abx prnpain meds dressing instructions per wound care Code(s): S91.309A - UNSPECIFIED OPEN WOUND, UNSPECIFIED FOOT, INITIAL ENCOUNTER cellulitis of the rt foot plan continue abx leg still swollen will get mri of the foot--ordered wound care rest as per the team
--- NOTE | 2018-11-22 17:19 | PN ---
Progress Note, Physician History of Present Illness: doing well - Current Medication List Current Medications: Active Medications Heparin Sodium (Porcine) (Heparin -) 5,000 unit SQ BID [facility] Last Admin: 11/22/18 09:40 Dose: 5,000 unit Piperacillin Sod/Tazobactam (Sod 3.375 gm/ Dextrose) 50 mls @ 100 mls/hr IVPB Q8H-IV [facility]; Protocol Last Admin: 11/22/18 09:40 Dose: 100 mls/hr Insulin Aspart (Novolog Vial Sliding Scale -) 1 vial SQ ACHS [facility]; Protocol Last Admin: 11/22/18 11:36 Dose: 10 units Mupirocin (Bactroban 2% Ointment -) 1 applic TP BID [facility] Last Admin: 11/22/18 09:39 Dose: 1 applic Oxycodone HCl (Roxicodone -) 10 mg PO Q6H PRN PRN Reason: PAIN LEVEL 6-10 - Objective Vital Signs: Vital Signs Temperature 98.4 F 11/22/18 14:00 Pulse Rate 80 11/22/18 14:00 Respiratory Rate 20 11/22/18 14:00 Blood Pressure 149/89 11/22/18 14:00 O2 Sat by Pulse Oximetry (%) 100 11/21/18 22:00 Constitutional: Yes: No Distress HENT: Yes: Atraumatic Neck: Yes: Supple Cardiovascular: Yes: Regular Rate and Rhythm Respiratory: Yes: CTA Bilaterally Gastrointestinal: Yes: Normal Bowel Sounds Extremities: Yes: Other (R toe infection) Edema: Yes Edema: RLE: 1+ (R foot) Labs: CBC, BMP 11/20/18 13:34 11/20/18 13:34 INR, PTT INR 1.04 (0.83-1.09) 11/20/18 13:34 Problem List - Problems (1) Callus of foot Code(s): L84 - CORNS AND CALLOSITIES (2) Contusion of toe of right foot Code(s): S90.121A - CONTUSION OF RIGHT LESSER TOE(S) W/O DAMAGE TO NAIL, INIT (3) Diabetes Assessment/Plan: on insulin and bgms Code(s): E11.9 - TYPE 2 DIABETES MELLITUS WITHOUT COMPLICATIONS (4) HTN (hypertension) Assessment/Plan: monitor Code(s): I10 - ESSENTIAL (PRIMARY) HYPERTENSION (5) Hyperlipemia Code(s): E78.5 - HYPERLIPIDEMIA, UNSPECIFIED (6) Morbid obesity Code(s): E66.01 - MORBID (SEVERE) OBESITY DUE TO EXCESS CALORIES (7) Wound of foot Assessment/Plan: iv abx prnpain meds dressing instructions per wound care Code(s): S91.309A - UNSPECIFIED OPEN WOUND, UNSPECIFIED FOOT, INITIAL ENCOUNTER (8) Cellulitis Assessment/Plan: R big toe on abx per id wound care and dressing change Code(s): L03.90 - CELLULITIS, UNSPECIFIED
[2018-11-22] MEDS: SPRINTEC PO SCH (18:41)
[2018-11-23] MEDS ORDERED: PIPERACILLIN/TAZOBACTAM 3.375 GM VIAL IVPB ONE ×2 (01:23→09:13)
[2018-11-23] MEDS ORDERED: DEXTROSE 5%-WATER - 50 ML IVPB ONE ×2 (01:23→09:13)
[2018-11-23] MEDS: PIPERACILLIN/TAZOB 3.375 GM 3.375 GM in DEXTROSE 5%-WATER - 50 ML IVPB SCH ×2 (01:30→09:48)
[2018-11-23] MEDS: INSULIN SLIDING SCALE (NOVOLOG) 1 VIAL SQ SCH ×2 (06:51→11:20)
[2018-11-23] MEDS: HEPARIN NA (PORCINE) 5,000 UNITS/ML 1ML VIAL SQ SCH (09:48)
[2018-11-23] MEDS: SPRINTEC PO SCH (09:49)
[2018-11-23] MEDS: MUPIROCIN 2% TOPICAL OINTMENT 22 GM TUBE TP SCH (09:50)
--- NOTE | 2018-11-23 10:55 | PN ---
Progress Note (short form) - Note Progress Note: Pt seen and examined. States she is doing "okay" this morning. Reports her foot is less swollen. Endorses pain in her foot is much improved. No issues overnight. Tolerating PO, has been oob without issue with surgical shoe. Voiding. Denies cp/sob, n/v/d, calf pain/edema. Last Vital Signs Temp Pulse Resp BP Pulse Ox 98.7 F 90 20 150/86 99 11/23/18 06:00 11/23/18 06:00 11/23/18 06:00 11/23/18 06:00 11/22/18 22:00 CBC, BMP 11/20/18 13:34 11/20/18 13:34 GENERAL: Awake, alert, and fully oriented, in no acute distress. HEAD: Normal with no signs of trauma. LUNGS: breathing comfortably on RA. LOWER EXTREMITIES: L foot with no open ulcers or wounds. Callus over medial aspect of great toe. R foot edema improved. Erythema rescinded to base of metatarsal head. R toe with open ulcer approx 4x2cm on medial aspect of great toe (s/p debridement of callus), + seropurulent drainage expressed. +TTP of great toe, +ecchymosis of great toe. Small denuded blister over 1st metatarsal head, eschar intact with no drainage, +TTP. No ttp on plantar surface. No crepitus. Vasc: 2+ dp/pt b/l Problem List - Problems (1) Wound of foot Assessment/Plan: Plan -foot looks much improved, cleared from surgical standpoint for discharge. -daily dressing changes -follow up with Dr. Dyer in office next week. Code(s): S91.309A - UNSPECIFIED OPEN WOUND, UNSPECIFIED FOOT, INITIAL ENCOUNTER
[2018-11-23] MEDS ORDERED: INSULIN (NOVOLOG) ASPART 100 UNITS/ML 10ML VIAL ONE (10:59)
--- NOTE | 2018-11-23 12:51 | DS ---
Physical Examination Vital Signs: Vital Signs Temperature 98.7 F 11/23/18 06:00 Pulse Rate 90 11/23/18 06:00 Respiratory Rate 20 11/23/18 06:00 Blood Pressure 150/86 11/23/18 06:00 O2 Sat by Pulse Oximetry (%) 99 11/22/18 22:00 Constitutional: Yes: No Distress HENT: Yes: Atraumatic Neck: Yes: Supple Cardiovascular: Yes: Regular Rate and Rhythm Respiratory: Yes: CTA Bilaterally Gastrointestinal: Yes: Normal Bowel Sounds Extremities: Yes: Other (R toe cellulitis) Edema: No Peripheral Pulses WNL: Yes Neurological: Yes: Alert, Oriented Labs: CBC, BMP 11/20/18 13:34 11/20/18 13:34 Discharge Summary Reason For Visit: HYPERGLYCEMIA,DIAB ULCER/SKIN BREAKDN Current Active Problems Cellulitis (Acute) Newly diagnosed diabetes (Acute) Wound of foot (Acute) Condition: Good - Instructions Diet, Activity, Other Instructions: Dr. Dyer Discharge Instructions Dear ROBERTA HAM, Post Operative Instructions Physical activity Resume your normal everyday activity as tolerated no heavy lifting or exercise until seen by your surgeon. You may resume driving the car when you feel safe and comfortable behind the wheel. Wound care Change dressing daily with bactroban and dry dressing. Diet Diabetic diet. Eat healthy, high-fiber foods. Drink 6 to 8 glasses of liquid each day. This will assist in keeping your bowels are regular. Diabetic diet. Pain management You may take Tylenol or acetaminophen or Ibuprofen (for example, Motrin, Advil etc.) Any pain prescription medication ordered should be taken as prescribed for moderate to severe pain. Call Dr. Dyer for any of the following: Severe pain not relieved by medication Fever of 101 or higher Excessive bleeding or drainage on dressing Call the office at for a post operative appointment next week. Referrals: Jermaine Anne MD [Staff Physician] - Elle Allen MD [Staff Physician] - Guru Dyer MD [Staff Physician] - Disposition: HOME - Home Medications Comprehensive Discharge Medication List: Ambulatory Orders Amox-Tr/K Cl [Augmentin - 875Mg Tablet] 1 tab PO BID #30 tablet 11/23/18 Mupirocin Ointment [Bactroban 2% Ointment -] 1 applic TP BID #1 applic 11/23/[address] oliver next week tuesday
[2018-11-23 14:33] VITALS: BP 154/82; PULSE 81; TEMP 98.3
== END 2018-11-23 16:39 | disposition home or self-care (01) | DRG 603 ==
LOC: JER 13:01 → JERBED 14:40 → J6S 20:57
PROVIDERS: ADMIT Internal Medicine; ATTEND Internal Medicine
DX: L03.031 Cellulitis of right toe (principal); Z68.43 Body mass index [BMI] 50.0-59.9, adult; L97.518 Non-pressure chronic ulcer of other part of right foot with other specified severity; L03.115 Cellulitis of right lower limb; E11.621 Type 2 diabetes mellitus with foot ulcer; E66.01 Morbid (severe) obesity due to excess calories; L84 Corns and callosities; E11.65 Type 2 diabetes mellitus with hyperglycemia; I10 Essential (primary) hypertension; E78.5 Hyperlipidemia, unspecified; D72.829 Elevated white blood cell count, unspecified; T14.90XA Injury, unspecified, initial encounter; X58.XXXA Exposure to other specified factors, initial encounter; Y93.9 Activity, unspecified; Y92.89 Other specified places as the place of occurrence of the external cause; Y99.9 Unspecified external cause status
CPT/HCPCS: 36415; 73630-TC-RT-FY; 73718-TC; 80053; 82962; 84703; 85027; 85610; 85651; 86140; 86850; 86900; 86901; 87040; 87070; 87186; 87205; 99282-25; J1644